=== PATIENT | male | born 1980 ===

== ENCOUNTER 2019-04-09 06:30 | Emergency (ER) | payer BC ==
[2019-04-09] MEDS ORDERED: ONDANSETRON HCL IV 4 MG/2 ML VIAL IV ONE (07:12)
[2019-04-09] MEDS ORDERED: 0.9 % SODIUM CHLORIDE 1,000 ML BAG IV ONE (07:12)
--- NOTE | 2019-04-09 07:12 | Emergency Department Record ---
History of Present Illness - General Chief Complaint: Abdominal Pain Stated Complaint: ABDOMINAL PAIN Time Seen by Provider: 04/09/19 07:05 Source: Patient Mode of Arrival: Ambulatory - History of Present Illness Initial Comments: The patient states he was awakened from sleep around 0200 with severe cramping abdominal pain, not radiating to his back, not associated with nausea, vomiting, diarrhea, fevers, chills or URI symptoms. He had a small BM prior to coming here. He typically has daily BM's with no history of constipation. He smokes cigarettes and marijuana. He has no history of abdominal surgeries. He is not on any prescription medications. MD Complaint: Abdominal pain Onset/Timin -: Hour(s) Location: Diffuse Radiation: None Migration to: No migration Severity: Moderate Severity scale (1-10): 8 Quality: Cramping Consistency: Constant Improves With: Nothing Worsens With: Nothing Associated Symptoms: Denies other symptoms - Related Data Home Medications Medication Instructions Recorded Confirmed Last Taken No Home Med [NO HOME MEDS] 04/09/19 04/09/19 Unknown Allergies Allergy/AdvReac Type Severity Reaction Status Date / Time shellfish derived Allergy ANAPHYLAXIS Verified 04/09/19 06:41 Travel Screening - Travel/Exposure Within Last 30 Days Have you traveled within the last 30 days?: No - Travel/Exposure Within Last Year Have you traveled outside the [place] in the last year?: No - Additonal Travel Details Have you been exposed to anyone with a communicable illness?: No - Travel Symptoms Symptom Screening: None Review of Systems Reviewed: No additional complaints except as noted below Constitutional: Reports: As per HPI. Denies: Chills, Fever, Malaise, Night sweats, Weakness, Weight change Eyes: Reports: As per HPI. Denies: Eye discharge, Eye pain, Photophobia, Vision change ENT: Reports: As per HPI. Denies: Congestion, Dental pain, Ear pain, Epistaxis, Hearing loss, Throat pain Respiratory: Reports: As per HPI. Denies: Cough, Dyspnea, Hemoptysis, Stridor, Wheezes Cardiovascular: Reports: As per HPI. Denies: Arrhythmia, Chest pain, Dyspnea on exertion, Edema, Murmurs, Orthopnea, Palpitations, Paroxysmal nocturnal dyspnea, Rheumatic Fever, Syncope Endocrine: Reports: As per HPI. Denies: Fatigue, Heat or cold intolerance, Polydipsia, Polyuria Gastrointestinal: Reports: As per HPI. Denies: Abdominal pain, Constipation, Diarrhea, Hematemesis, Hematochezia, Melena, Nausea, Vomiting Genitourinary: Reports: As per HPI. Denies: Dysuria, Frequency, Hematuria, Incontinence, Retention, Testicular pain, Testicular mass, Urgency Musculoskeletal: Reports: As per HPI. Denies: Arthralgia, Back pain, Gout, Joint swelling, Myalgia, Neck pain Skin: Reports: As per HPI. Denies: Bruising, Change in color, Change in hair/nails, Lesions, Pruritus, Rash Neurological: Reports: As per HPI. Denies: Abnormal gait, Confusion, Headache, Numbness, Paresthesias, Seizure, Tingling, Tremors, Vertigo, Weakness Psychiatric: Reports: As per HPI. Denies: Anxiety, Auditory hallucinations, Depression, Homicidal thoughts, Suicidal thoughts, Visual hallucinations Hematological/Lymphatic: Reports: As per HPI. Denies: Anemia, Blood Clots, Easy bleeding, Easy bruising, Swollen glands Past Medical History - SOCIAL HISTORY Smoking Status: Never smoker Alcohol Use: None Drug Use: Heavy Drug Use Detail:: Marijuana - RESPIRATORY Hx Respiratory Disorders: No Hx Bronchitis: No - CARDIOVASCULAR Hx Cardio Disorders: No - NEURO Hx Neuro Disorders: No - GI Hx GI Disorders: No - Hx Genitourinary Disorders: No - ENDOCRINE Hx Endocrine Disorders: No Hx Thyroid Disease: No - MUSCULOSKELETAL Hx Musculoskeletal Disorders: No - PSYCH Hx Psych Problems: No - HEMATOLOGY/ONCOLOGY Hx Hematology/Oncology Disorders: No Family Medical History Any Significant Family History?: No Physical Exam - General General Appearance: Alert, Oriented x3, Cooperative, Severe distress (moaning and rocking on his cart, holding his abdomen) - Head Head exam: Normal inspection - Eye Eye exam: Normal appearance, PERRL, Conjunctival injection, EOMI. negative: Nystagmus Pupils: Normal accommodation - ENT ENT exam: Normal exam, Mucous membranes dry, Normal external ear exam, Normal orophraynx, TM's normal bilaterally. negative: Mucous membranes moist Ear exam: Normal external inspection. negative: External canal tenderness Nasal Exam: Normal inspection. negative: Discharge, Sinus tenderness Mouth exam: Normal external inspection, Tongue normal Teeth exam: Normal inspection. negative: Dental caries Throat exam: Normal inspection. negative: Tonsillar erythema, Tonsillar exudate - Neck Neck exam: Normal inspection, Full ROM. negative: Lymphadenopathy, Meningismus, Tenderness - Respiratory Respiratory exam: Normal lung sounds bilaterally. negative: Respiratory distress - Cardiovascular Cardiovascular Exam: Regular rate, Normal rhythm, Normal heart sounds - GI/Abdominal GI/Abdominal exam: Soft, Normal bowel sounds. negative: Tenderness - Rectal Rectal exam: Deferred - exam: Deferred - Extremities Extremities exam: Normal inspection, Full ROM, Normal capillary refill. negative: Tenderness - Back Back exam: Reports: Normal inspection, Full ROM. Denies: CVA tenderness (R), CVA tenderness (L), Muscle spasm, Rash noted, Tenderness - Neurological Neurological exam: Alert, CN II-XII intact, Normal gait, Oriented X3, Reflexes normal. negative: Motor sensory deficit - Psychiatric Psychiatric exam: Normal affect, Normal mood - Skin Skin exam: Dry, Intact, Normal color, Warm Course Vital Signs 04/09/19 06:43 Temperature 98.1 F Pulse Rate [ 68 Left Brachial] Respiratory 20 Rate Blood Pressure 158/98 [Left Arm] Pulse Ox 98 - Reevaluation(s) Reevaluation #1: Patient appears much more comfortable after levsin. Awaiting CT scan and results. EKG NSR 50/minute, LED, early repolarization, no prior. 04/09/19 07:46 Reevaluation #2: Pain has returned as before in same location. All studies normal. CT read as no acute process. incidental large 2.1 cm gallstone without dilated ducts, without thickened GB wall or other abnormality. Patient and his significant other are requesting a local PCP. Also he refused a fleets enema, but will give him 1/2 bottle magnesium citrate now and the other half for home. 04/09/19 09:19 04/09/19 09:24 Reevaluation #3: Patient is still in pain after bentyl. Will order morphine for his cramping as well as magnesium citrate. 04/09/19 09:47 04/09/19 10:48 Reevaluation #4: Feeling better now. Ready for DC. 04/09/19 10:29 Medical Decision Making - Management Options MDM Management: No Additional Work-up Planned - Data Complexity MDM Data: Labs Ordered and/or Reviewed, X-Ray Ordered and/or Reviewed (CT Abd/Pelvis: No acute process. 2.1 cm large gallstone without obstruction. Incidental RML 2.9 which can be follow by PCP in 3-6 months.), EKG Ordered and/or Reviewed - Lab Data Result diagrams: 04/09/19 06:45 04/09/19 06:45 - EKG Data -: EKG Interpreted by Me EKG: No Acute Changes Disposition Disposition: Discharge Clinical Impression: Abdominal pain in male Constipation Qualifiers: Constipation type: unspecified constipation type Qualified Code(s): K59.00 - Constipation, unspecified Disposition: Home, Self-Care Condition: (2) Stable Instructions: Constipation (ED) Additional Instructions: Take magnesium citrate 1/2 bottle now and in 4-8 hours if no results. High fiber diet, i.e. fresh fruits, vegetables, no processed/junk foods. Miralax from the pharmacy as directed as needed for constipation. Increase fluid intake. You have a large gallstone on your CT scan unrelated to your visit today. You also have an incidental lung nodule which needs follow up in 3-6 months through your PCP. DC marijuana as this problem may be related to marijuana use. PCP referral list for routine care. Quality - Quality Measures Quality Measures: N/A - Blood Pressure Screening Does Patient Have Any of the Following: No Blood Pressure Classification: Pre-Hypertensive BP Reading Systolic Measurement: 129 Diastolic Measurement: 72 Screening for High Blood Pressure: < First Hypertensive BP, F/U Documented > [G8950] First Hypertensive Follow-up Interventions: Follow-up with rescreen GT 1 day and LT 4 weeks., Lifestyle modifications., Referral to alternative/primary care provider. Lifestyle Modification: Weight Reduction, Dietary Approaches to Stop Hypertension (DASH) Eating Plan, Dietary Sodium Restriction, Increased Physical Activity, Moderation in alcohol (ETOH) consumption
[2019-04-09] MEDS ORDERED: HYOSCYAMINE SULFATE ODT 0.125 MG TAB.SUBL SL ONE (07:14)
[2019-04-09 07:23] LABS: ABSOLUTE NEUTROPHIL COUNT 6.15; BASO % 0.2 % (0-6); EOS % 1.8 % (0-6); GRAN % 73.4 % (47-80); HEMOGLOBIN 15.5 gm/dl (14.0-18.0); LYMPH % 18.8 % (16-45); MEAN CELL VOLUME 87.5 fl (81-97); MEAN CORPUSCULAR HEMOGLOBIN 30.2 pg (27-33); MEAN CORPUSCULAR HGB CONC 34.4 g/dl (32-36); MEAN PLATELET VOLUME 10.3 fl (7.4-10.4); MONO % 5.8 % (0-9); PLATELET COUNT 269 K/uL (130-400); RED BLOOD COUNT 5.14 M/uL (4.40-5.70); RED CELL DISTRIBUTION WIDTH 13.6 % (11.5-14.5); WHITE BLOOD COUNT W/O DIFF 8.4 K/uL (4.2-12.2)
[2019-04-09 07:37] LABS: BILIRUBIN,TOTAL < 0.20 mg/dL (0.2-1.0); BLOOD UREA NITROGEN 19 mg/dL (6-20); CREATININE 0.9 mg/dL (0.7-1.2); EST GLOMERULAR FILTRATION RATE > 60 mL/min; LIPASE 50 U/L (13-60); TOTAL PROTEIN 7.1 g/dL (6.6-8.7)
[2019-04-09 07:39] LABS: GLUCOSE,RANDOM 108 mg/dL (74-109)
[2019-04-09 07:42] LABS: ALBUMIN 4.8 g/dL (4.0-5.0); ALKALINE PHOSPHATASE 85 U/L (40-129); ALT/SGPT 45 U/L (<41); AST/SGOT 46 U/L (10.0-50.0); BILIRUBIN,DIRECT < 0.2 mg/dL (0-0.3)
[2019-04-09 07:44] LABS: URINE APPEARANCE CLEAR; URINE BILIRUBIN NEGATIVE (NEGATIVE); URINE BLOOD NEGATIVE (NEGATIVE); URINE COLOR YELLOW; URINE GLUCOSE (UA) NEGATIVE (NEGATIVE); URINE KETONE NEGATIVE (NEGATIVE); URINE LEUKOCYTE ESTERASE NEGATIVE (NEGATIVE); URINE NITRITE NEGATIVE (NEGATIVE); URINE PROTEIN NEGATIVE (NEGATIVE); URINE UROBILINOGEN 0.2 E.U./dL (0.20 - 1.00)
[2019-04-09 07:47] LABS: AMPHETAMINE SCREEN URINE NOT DETECTED; BARBITURATE SCREEN URINE NOT DETECTED; BENZODIAZEPINE SCREEN URINE NOT DETECTED; COCAINE SCREEN URINE NOT DETECTED; METHADONE SCREEN URINE NOT DETECTED; METHAMPHETAMINE SCREEN NOT DETECTED; OPIATE SCREEN URINE NOT DETECTED; OXYCODONE SCREEN URINE NOT DETECTED; PHENCYCLIDINE SCREEN URINE NOT DETECTED; PROPOXYPHENE SCREEN URINE NOT DETECTED; THC SCREEN URINE NOT DETECTED; TRICYCLIC ANTIDEPRESSANT SCRN NOT DETECTED
[2019-04-09] MEDS ORDERED: DICYCLOMINE HCL 10 MG/ML AMPUL IM ONE (09:16)
[2019-04-09] MEDS ORDERED: MORPHINE SULFATE 5 MG/ML VIAL IM ONE (09:48)
[2019-04-09] MEDS ORDERED: MAGNESIUM CITRATE 296 ML BTL PO ONE (10:55)
--- NOTE | 2019-04-10 06:23 | CT SCAN REPORT ---
EXAM: CT SCAN ABDOMEN/PELVIS WO CONTRAST HISTORY: PERIUMBILICAL ABDOMINAL PAIN. GROIN PAIN. CRAMPING IN PELVIS. TECHNIQUE: Routine thin-collimation helical CT examination of the abdomen and pelvis is performed without oral or intravenous contrast administration. Lack of oral and IV contrast utilization limits evaluation of the bowel and solid viscera respectively. FINDINGS: There is mild dependent atelectasis in the dependent lung bases. There is a subpleural nodule in the lateral segment of the right middle lobe seen on the first image obtained. This is likely incompletely imaged. The imaged portion measures 2.9 mm in maximum diameter. In a low risk patient, no routine follow-up is necessary. If the patient is high risk, follow-up CT chest in 12 months could be performed. No pleural or pericardial effusion. The heart is not enlarged. The liver, spleen, pancreas, adrenal glands, and kidneys are normal in appearance. There is moderate distention of the gallbladder. A large calcified stone is noted within the gallbladder neck measuring 2.2 cm in diameter. No gross gallbladder wall thickening nor biliary ductal dilatation. No intra- abdominal nor retroperitoneal lymphadenopathy. The vasculature is normal in caliber. No pelvic mass, lymphadenopathy, or free pelvic fluid. No intrinsic urinary bladder abnormality. There is a tiny fat-filled umbilical hernia. No gross bowel dilatation nor bowel wall thickening. No lytic or blastic bone lesion. Mild degenerative disc/endplate changes are scattered within the visualized spine. IMPRESSION: 1. LACK OF ORAL AND IV CONTRAST UTILIZATION MILDLY LIMITS EVALUATION. 2. NO CT EVIDENCE OF AN ACUTE INTRA-ABDOMINAL NOR INTRAPELVIC PROCESS. 3. LARGE CALCIFIED GALLSTONE. NO DEFINITE GROSS GALLBLADDER WALL THICKENING OR PERICHOLECYSTIC FLUID. 4. A 2.9 MM SUBPLEURAL NODULE IN THE RIGHT LOWER LOBE, DISCUSSED ABOVE. JOB NUMBER: [id number] [facility]
== END 2019-04-09 11:03 | disposition home or self-care (01) ==
LOC: ER 06:30
DX: R10.9 Unspecified abdominal pain (principal); K59.00 Constipation, unspecified
CPT/HCPCS: 74176; 80048; 80076; 80305; 81003; 83690; 84484; 85025; 93005; 93010; 96372; 96374; 96375; 99284; J2405; J7030